=== PATIENT | male | born 1985 | race African-American/Black ===

== ENCOUNTER 2024-02-13 18:52 | Inpatient (IN) | payer OTHER ==
[2024-02-13] MEDS ORDERED: Promethazine HCl 25 MG/ML VIAL IM PRN (23:22)
[2024-02-13] MEDS ORDERED: Morphine 4 MG/ML VIAL SLOW IVP PRN (23:22)
[2024-02-13] MEDS ORDERED: Ketorolac Tromethamine 30 MG (1 mL) VIAL IVP PRN (23:22)
[2024-02-13] MEDS ORDERED: Ondansetron PF 4 MG/2 ML Vial IVP PRN (23:22)
[2024-02-13] MEDS ORDERED: HYDROcodone/Acetaminophen 7.5/325 mg Tablet PO PRN (23:25)
[2024-02-14 00:11] VITALS: BMI 30.5
[2024-02-14] MEDS: Lactated Ringer's 1,000 ML IV SCH (01:20)
[2024-02-14 06:06] LABS: #Basophils 0.08 10x3/uL (0.0-0.2); %Basophils 1.1 % (0.0-1.0); %Eosinophils 6.4 % (0.0-10.0); %Lymphocytes 35.3 % (21.0-51.0); %Monocytes 7.3 % (0.0-10.0); %Neutrophils 49.6 % (42.0-75.0); Hematocrit 37.6 % (42.0-52.0); Hemoglobin 12.1 g/dL (14.0-18.0); Mean Corpuscular HGB CONC 32.2 g/dL (32.0-36.0); Mean Corpuscular Hemoglobin 26.2 pg (27.0-31.0); Mean Corpuscular Volume 81.4 fL (78.0-98.0); Mean Platelet Volume 9.4 fL (7.4-10.4); Platelet Count 265 10x3/uL (130-400); RBC Distribution Width 18.7 % (11.5-14.5); Red Blood Cell (RBC) Count 4.62 mill/uL (4.70-6.10)
[2024-02-14 06:23] LABS: Anion Gap 11 mmol/L (10-20); BUN (Urea Nitrogen) 11 mg/dL (8.9-20.6); Calc. Creatinine Clearance 156 mL/min (70-130); Calcium 8.7 mg/dL (7.8-10.44); Carbon Dioxide 26 mmol/L (22-29); Chloride 107 mmol/L (98-107); Estimated GFR 115; Glucose 80 mg/dL (70-105); Potassium 3.7 mmol/L (3.5-5.1); Sodium 140 mmol/L (136-145)
[2024-02-14] MEDS ORDERED: traMADol HCl 50 MG TAB PO PRN (06:57)
[2024-02-14 08:20] VITALS: BP 152/98; TEMP 98.4
[2024-02-14] MEDS ORDERED: hydrALAZINE 20 MG/ML VIAL SLOW IVP PRN (09:25)
[2024-02-14] MEDS ORDERED: cefOXitin 2 GM VIAL ONE (10:16)
[2024-02-14] MEDS ORDERED: Lidocaine 2% PF 5 ML VIAL ONE (10:37)
[2024-02-14] MEDS ORDERED: PROPOFOL 20 ML ONE (10:37)
[2024-02-14] MEDS ORDERED: Rocuronium Bromide 10 MG/ML (10ML VIAL) ONE (10:37)
[2024-02-14] MEDS ORDERED: Fentanyl 250 MCG/5 ML VIAL ONE (11:15)
[2024-02-14] MEDS ORDERED: SUCCINYLCHOLINE/SOD CL,ISO/PF 200 MG/10 ML SYRINGE FS ONE (11:15)
[2024-02-14] MEDS ORDERED: Midazolam HCl 2 mg/2 ml Vial ONE (11:15)
[2024-02-14] MEDS ORDERED: Albumin 5% 500 ML ONE (11:18)
[2024-02-14] MEDS ORDERED: EPINEPHrine 1 MG/ML VIAL ONE (11:56)
[2024-02-14] MEDS ORDERED: Bupivacaine 0.25% HCL 30 ML VIAL ONE (11:57)
[2024-02-14] MEDS ORDERED: traMADol HCl 50 MG TAB PO SCH (12:00)
[2024-02-14] MEDS ORDERED: Dexamethasone 4 mg/ml Vial ONE (12:12)
[2024-02-14] MEDS ORDERED: Ondansetron PF 4 MG/2 ML Vial ONE ×2 (12:12→12:37)
[2024-02-14] MEDS ORDERED: SUGAMMADEX SODIUM 200 MG/2 ML VIAL ONE (12:12)
[2024-02-14] MEDS ORDERED: HYDROcodone/Acetaminophen 5/325 mg Tablet PO PRN (12:27)
[2024-02-14] MEDS ORDERED: Labetalol HCl 100 MG/20 ML VIAL ONE (12:37)
[2024-02-14] MEDS ORDERED: Acetaminophen 325 MG TAB PO PRN (23:24)
== END 2024-02-14 13:25 | disposition left against medical advice (07) | DRG 328 ==
LOC: SURG A 23:05
PROVIDERS: ADMIT Surgery; ATTEND Surgery
PROC: 0DJ04ZZ Inspection of Upper Intestinal Tract, Percutaneous Endoscopic Approach (ICD-10-PCS; principal; 2024-02-14)
PROC: 30233J1 Transfusion of Nonautologous Serum Albumin into Peripheral Vein, Percutaneous Approach (ICD-10-PCS; 2024-02-14)
PROC: 3E033XZ Introduction of Vasopressor into Peripheral Vein, Percutaneous Approach (ICD-10-PCS; 2024-02-14)
DX: R10.9 Unspecified abdominal pain (principal); I10 Essential (primary) hypertension; F31.9 Bipolar disorder, unspecified; F41.9 Anxiety disorder, unspecified; F17.210 Nicotine dependence, cigarettes, uncomplicated; Z79.899 Other long term (current) drug therapy; Z98.890 Other specified postprocedural states
CPT/HCPCS: 36415; 80048; 85025; A4314; J0171; J0665; J0694; J1100; J2250; J2405; J2704; J3010; J7120; P9045

== ENCOUNTER 2024-02-14 18:33 | Emergency (ER) | payer OTHER ==
[2024-02-14] MEDS ORDERED: Acetaminophen 500 MG TAB ONE (19:27)
[2024-02-14] MEDS ORDERED: Ketorolac Tromethamine 30 MG (1 mL) VIAL ONE (19:27)
== END 2024-02-14 20:13 | disposition home or self-care (01) ==
LOC: ERS 18:33
DX: G89.18 Other acute postprocedural pain (principal); I10 Essential (primary) hypertension; F17.210 Nicotine dependence, cigarettes, uncomplicated
CPT/HCPCS: 96374; J1885

== ENCOUNTER 2024-02-14 23:14 | Emergency (ER) | payer OTHER ==
[2024-02-15] MEDS ORDERED: Droperidol 5 MG/2 ML VIAL ONE (00:50)
[2024-02-15 01:01] LABS: #Basophils 0.06 10x3/uL (0.0-0.2); #Eosinophils Less than 0.03 10x3/uL (0.0-0.7); %Basophils 0.6 % (0.0-1.0); %Eosinophils 0.2 % (0.0-10.0); %Lymphocytes 14.4 % (21.0-51.0); %Monocytes 5.2 % (0.0-10.0); %Neutrophils 79.3 % (42.0-75.0); Hematocrit 40.8 % (42.0-52.0); Hemoglobin 13.1 g/dL (14.0-18.0); Mean Corpuscular HGB CONC 32.1 g/dL (32.0-36.0); Mean Corpuscular Hemoglobin 25.8 pg (27.0-31.0); Mean Corpuscular Volume 80.5 fL (78.0-98.0); Mean Platelet Volume 9.1 fL (7.4-10.4); Platelet Count 296 10x3/uL (130-400); RBC Distribution Width 18.6 % (11.5-14.5); Red Blood Cell (RBC) Count 5.07 mill/uL (4.70-6.10)
[2024-02-15 01:23] LABS: ALT (SGPT) 13 U/L (8-55); AST (SGOT) 36 U/L (5-34); Albumin 3.8 g/dL (3.5-5.0); Alkaline Phosphatase 64 U/L (40-110); Anion Gap 15 mmol/L (10-20); BUN (Urea Nitrogen) 11 mg/dL (8.9-20.6); Bilirubin, Total 0.4 mg/dL (0.2-1.2); Calc. Creatinine Clearance 0 mL/min (70-130); Calcium 9.1 mg/dL (7.8-10.44); Carbon Dioxide 24 mmol/L (22-29); Chloride 104 mmol/L (98-107); Estimated GFR 109; Globulin 3.5 g/dL (2.4-3.5); Glucose 92 mg/dL (70-105); Lipase 37 U/L (8-78); Potassium 4.4 mmol/L (3.5-5.1); Protein, Total 7.3 g/dL (6.0-8.3); Sodium 139 mmol/L (136-145)
== END 2024-02-15 02:32 | disposition home or self-care (01) ==
LOC: ERS 23:14
DX: R10.9 Unspecified abdominal pain (principal); I10 Essential (primary) hypertension; F17.210 Nicotine dependence, cigarettes, uncomplicated
CPT/HCPCS: 74177; 83690; 96374; J1790